=== PATIENT | female | born 1965 ===

== ENCOUNTER 2025-02-18 06:15 | Day surgery (SDC) | payer OTHER ==
[2025-02-11 10:00] LABS: BASO % 0.6 % (0.1-1.2); EOS # 0.12 (0.04-0.54); EOS % 2.3 % (0.7-7.0); LYMPH # 0.07 (1.18-3.74); LYMPH % 1.3 % (19.3-53.1); MEAN PLATELET VOLUME 9.50 fl (9.4-12.4); MONO # 1.03 (0.24-0.82); NEUT # 3.76 (1.56-6.13); NEUT % 70.5 % (34.0-71.1); RED CELL DISTRIBUTION WIDTH 14.3 % (11.6-14.4)
[2025-02-11 10:28] LABS: INR < 0.93
[2025-02-11 10:31] LABS: URINE APPEARANCE Clear; URINE BILIRRUBIN Negative (NEGATIVE); URINE BLOOD Negative; URINE COLOR Yellow; URINE GLUCOSE Negative (NEGATIVE); URINE KETONE Negative (NEGATIVE); URINE LEUKOCYTE Negative; URINE NITRATE Negative; URINE PROTEIN Negative (NEGATIVE); URINE UROBILINOGEN 0.2 E.U./dl
[2025-02-11 10:32] LABS: URINE BACTERIA 17.9 uL (0.0-1933); URINE RBC 9.5 uL (0.0-20.8); URINE WBC 2.9 uL (0.0-23.2)
[2025-02-11 11:02] LABS: ALT/SGPT 40.0 U/L (12-78); AST/SGOT 25.0 U/L (15-37); BILIRUBIN TOTAL 0.33 mg/dL (0.3-1.2); BUN CREA RATIO 20.0 (7.0-25.0); CREATININE SERUM 0.4 mg/dL (0.55-1.02); GFR 163.37; GLOBULINA 4.1 G/DL (2.4-3.5); GLUCOSE FASTING 97.0 mg/dL (65-100); OSMOLALITY SERUM 274.0 MOSM/KG (275-295)
[2025-02-11 11:18] LABS: BAND MAN 9.0 %; EOSINOPHIL MAN 2.0 %; LYMPHOCYTE MAN 17.0 %; MONO % 19.3 % (4.7-12.5); MONOCYTE MAN 7.0 %; NEUTROPHILS MAN 63.0 %
[2025-02-11 11:28] LABS: URINE CAST 0.00 uL (0.0-1.40); URINE EPITHELIAL CELLS 0.9 uL (0.0-38.8)
[2025-02-11 11:33] LABS: URINE CRYSTALS MODERATE /HPF
[~2025-02-18 06:15] MED LIST: IVERMECTIN3 MG PO; MULTIPLE VITAM1 EAC2 PO; NERLYNX40 MG PO; POTASSIUM99 M3 PO; PROBIOTIC250 MG PO
[2025-02-18] MEDS ORDERED: LIDOCAINE HCL 1% 20 ML VIAL IJ ONE (09:30)
[2025-02-18] MEDS ORDERED: CEFAZOLIN SODIUM 1,000 MG VIAL IV ONE (09:30)
[2025-02-18] MEDS ORDERED: LIDOCAINE HCL 1%/EPINEPHRINE 20ML VIAL IJ ONE (09:30)
[2025-02-18] MEDS ORDERED: CEFAZOLIN SODIUM 1,000 MG VIAL IV SCH (10:45)
== END 2025-02-18 12:50 | disposition home or self-care (01) ==
LOC: CIR.AMB 06:15
PROVIDERS: ATTEND Specialist
DX: T82.514A Breakdown (mechanical) of infusion catheter, initial encounter (principal); C50.911 Malignant neoplasm of unspecified site of right female breast